=== PATIENT | male | born 1970 | race Caucasian/White ===

== ENCOUNTER 2024-03-02 12:25 | Inpatient (IN) | payer BC ==
[~2024-03-02] VITALS: Ht 203.2 cm; Wt 160.4 kg
[2024-03-02 15:12] LABS: BASOPHILS # (AUTO) 0.1 X10'3 (0-0.2); BASOPHILS % (AUTO) 0.5 % (0-1); EOSINOPHILS # (AUTO) 0.1 X10'3 (0-0.9); EOSINOPHILS % (AUTO) 1.3 % (0-6); HEMATOCRIT 45.7 % (42.0-52.0); LYMPHOCYTES # (AUTO) 1.4 X10'3 (1.1-4.8); MEAN CORPUSCULAR HEMOGLOBIN 28.7 PG (27.0-31.0); MEAN CORPUSCULAR HGB CONC 32.8 g/dL (33.0-36.5); MEAN CORPUSCULAR VOLUME 87.3 FL (78-98); MEAN PLATELET VOLUME 8.1 FL (7.4-10.4); MONOCYTES # (AUTO) 0.9 X10'3 (0-0.9); MONOCYTES % (AUTO) 8.3 % (2-12); NEUTROPHILS # (AUTO) 8.3 X10'3 (1.8-7.7); NEUTROPHILS % (AUTO) 76.9 % (42-75); PLATELET COUNT 261 X10'3 (140-440); RED BLOOD COUNT 5.23 X10'6 (4.70-6.10); RED CELL DISTRIBUTION WIDTH 14.2 % (11.5-14.5); WHITE BLOOD COUNT 10.8 X10'3 (4.5-11.0)
[2024-03-02] MEDS ORDERED: heparin 10,000 units/1 ML INJ IV ONE (15:15)
[2024-03-02] MEDS ORDERED: heparin 10,000 units/1 ML INJ IV PRN (15:15)
[2024-03-02 15:19] LABS: ALBUMIN 3.3 G/DL (3.4-5.0); ANION GAP 8 (8-16); BLOOD UREA NITROGEN 20 MG/DL (7-18); BUN/CREATININE RATIO 16.3 (10.0-20.0); CHLORIDE 101 MMOL/L (99-107); CREATININE 1.23 MG/DL (0.60-1.10); GLUCOSE 94 MG/DL (70-104); POTASSIUM 4.5 MMOL/L (3.5-5.1); SODIUM 136 MMOL/L (135-145); TOTAL CARBON DIOXIDE 27.1 MMOL/L (24-32); eCRCL 93 ML/MIN; eGFR 61 ML/MIN
[2024-03-02 15:37] LABS: PROTHROMBIN TIME 11.2 SECONDS (9.0-12.0)
[2024-03-02 15:45] LABS: PRO BRAIN NATRIURETIC PEPTIDE 41 PG/ML (0-125)
[2024-03-02] MEDS ORDERED: iohexol 350MG/ML 100ml bottle IV ONE (15:45)
[2024-03-02] MEDS: heparin 10,000 units/1 ML INJ IV ONE (16:39)
[2024-03-02] MEDS: heparin 25,000 UNIT/250ml bag 250 ML IV PRN (16:44)
[2024-03-02] MEDS: MESSAGE TO NURSING IV ONE (16:47)
[2024-03-02] MEDS ORDERED: HYDROcodone/acetaminophen 5mg/325mg tablet PO PRN (17:25)
[2024-03-02] MEDS ORDERED: mag hydrox/Alum hydrox/simeth 30ml oral suspension PO PRN (17:25)
[2024-03-02] MEDS ORDERED: morphine 2 MG/ML inj. syringe IV PRN ×2 (17:25)
[2024-03-02] MEDS ORDERED: ondansetron/PF 4mg/2ml inj IV PRN (17:25)
[2024-03-02] MEDS ORDERED: magnesium hydroxide 30ml (MOM) UD suspension PO PRN (17:25)
[2024-03-02] MEDS ORDERED: acetaminophen 325mg tablet PO PRN ×2 (17:25)
[2024-03-02] MEDS ORDERED: RIVA20TA PO (19:07)
[2024-03-02] MEDS ORDERED: DILT240C47 PO (19:07)
[2024-03-02] MEDS: docusate sod 100mg capsule PO SCH (20:00)
[2024-03-02 22:00] VITALS: BP 155/91; PULSE 77; RESP 20; TEMP 98.8; O2SAT 99
[2024-03-03] MEDS: MESSAGE TO NURSING IV ONE ×2 (00:15→06:05)
[2024-03-03 04:00] VITALS: BP 133/57; PULSE 82; RESP 18; TEMP 97.5; O2SAT 97
[2024-03-03 06:00] VITALS: BP 151/94; PULSE 81; RESP 16; TEMP 98.3; O2SAT 98
[2024-03-03 08:24] LABS: ANION GAP 10 (8-16); BLOOD UREA NITROGEN 17 MG/DL (7-18); BUN/CREATININE RATIO 16.3 (10.0-20.0); CALCIUM 8.8 MG/DL (8.5-10.1); CHLORIDE 101 MMOL/L (99-107); CREATININE 1.04 MG/DL (0.60-1.10); GLUCOSE 109 MG/DL (70-104); POTASSIUM 4.2 MMOL/L (3.5-5.1); SODIUM 135 MMOL/L (135-145); TOTAL CARBON DIOXIDE 24.4 MMOL/L (24-32); eCRCL 110 ML/MIN; eGFR 74 ML/MIN
[2024-03-03] MEDS: rivaroxaban 15mg tablet PO SCH (08:25)
[2024-03-03] MEDS ORDERED: RIVA20TA PO (11:17)
[2024-03-03] MEDS ORDERED: RIVA15TA PO (11:17)
[2024-03-03 11:31] VITALS: BP 155/99; PULSE 85; RESP 21; TEMP 98.1; O2SAT 97
== END 2024-03-03 11:35 | disposition home or self-care (01) | DRG 299 ==
LOC: ER 12:25 → ED HOLD 17:24 → PCU 3S 20:34
PROVIDERS: ADMIT Internal Medicine; ATTEND Internal Medicine
PROC: B32T1ZZ Computerized Tomography (CT Scan) of Left Pulmonary Artery using Low Osmolar Contrast (ICD-10-PCS; principal; 2024-03-02)
PROC: B3201ZZ Computerized Tomography (CT Scan) of Thoracic Aorta using Low Osmolar Contrast (ICD-10-PCS; 2024-03-02)
PROC: B32S1ZZ Computerized Tomography (CT Scan) of Right Pulmonary Artery using Low Osmolar Contrast (ICD-10-PCS; 2024-03-02)
DX: I82.411 Acute embolism and thrombosis of right femoral vein (principal); I26.99 Other pulmonary embolism without acute cor pulmonale; N17.9 Acute kidney failure, unspecified; I82.431 Acute embolism and thrombosis of right popliteal vein; Z88.0 Allergy status to penicillin
CPT/HCPCS: 36415; 71275; 80048; 81479; 83880; 83891; 83894; 83898; 84484; 85025; 85300; 85301; 85303; 85305; 85306; 85610; 85730; 86146; 86147; 87081; 93005; 93970; 93971; 96365; 96376; 99285; A6449; G0378; J1644; Q9967